=== PATIENT | female | born 1975 | race Caucasian/White ===

== ENCOUNTER 2017-08-23 11:08 | Emergency (ER) | payer OTHER ==
[2017-08-23 11:11] VITALS: BMI 22.4
[2017-08-23 11:17] VITALS: BP 122/69; PULSE 95; RESP 18; TEMP 98.1; O2SAT 100
--- NOTE | 2017-08-23 11:23 | ED PDOC ---
Arrival/HPI - General Chief Complaint: Rib Injury Time Seen by Provider: 08/23/17 11:10 Historian: Patient - History of Present Illness Narrative History of Present Illness (Text): 08/23/17 11:21 42yo female with no PMHx who present with right sided rib pain x 2weeks. Notes pain is with palpation, movement, deep inspiration. States she woke up with the pain. States she took Aleve yesterday with minimal relieve. Denies trauma, diaphoresis, SOB, dizziness, any other complaint. Past Medical History - Provider Review Nursing Documentation Reviewed: Yes - Infectious Disease Hx of Infectious Diseases: None - Tetanus Immunization Tetanus Immunization: Unknown - Pulmonary Hx Asthma: Yes - Psychiatric Hx Substance Use: No - Past Surgical History Past Surgical History: No Previous - Anesthesia Hx Anesthesia: No Hx Anesthesia Reactions: No Hx Malignant Hyperthermia: No Family/Social History - Physician Review Nursing Documentation Reviewed: Yes Family/Social History: Unknown Family HX Smoking Status: Current Some Days Smoker Hx Alcohol Use: Yes Frequency of alcohol use: Socially Hx Substance Use: No Hx Substance Use Treatment: No Allergies/Home Meds Allergies/Adverse Reactions: Allergies No Known Allergies Allergy (Verified 05/11/14 12:52) Review of Systems - Physician Review All systems were reviewed & negative as marked: Yes - Review of Systems Constitutional: Normal Eyes: Normal ENT: Normal Respiratory: Normal Cardiovascular: Normal Gastrointestinal: Normal Genitourinary Female: Normal Musculoskeletal: Arthralgias (Right ribs pain) Skin: Normal Neurological: Normal Endocrine: Normal Hemo/Lymphatic: Normal Psychiatric: Normal Physical Exam Vital Signs Reviewed: Yes Vital Signs Temp Pulse Resp BP Pulse Ox 08/23/17 11:16 98.1 F 95 H 18 122/69 100 Temperature: Afebrile Blood Pressure: Normal Pulse: Regular Respiratory Rate: Normal Appearance: Positive for: Well-Appearing, Non-Toxic, Comfortable Pain Distress: None Mental Status: Positive for: Alert and Oriented X 3 - Systems Exam Head: Present: Atraumatic, Normocephalic Pupils: Present: PERRL Extroacular Muscles: Present: EOMI Conjunctiva: Present: Normal Mouth: Present: Moist Mucous Membranes Neck: Present: Normal Range of Motion Respiratory/Chest: Present: Clear to Auscultation, Good Air Exchange, Tender to Palpation (right lateral ribs). No: Respiratory Distress, Accessory Muscle Use , Wheezes, Decreased Breath Sounds, Rales, Retracting, Rhonchi Cardiovascular: Present: Regular Rate and Rhythm, Normal S1, S2. No: Murmurs Abdomen: Present: Normal Bowel Sounds. No: Tenderness, Distention, Peritoneal Signs Back: Present: Normal Inspection Upper Extremity: Present: Normal Inspection. No: Cyanosis, Edema Lower Extremity: Present: Normal Inspection. No: Edema Neurological: Present: GCS=15, CN II-XII Intact, Speech Normal Skin: Present: Warm, Dry, Normal Color. No: Rashes Psychiatric: Present: Alert, Oriented x 3, Normal Insight, Normal Concentration Medical Decision Making ED Course and Treatment: 08/23/17 12:19 right rib/CXR - No fracture. No PTX. Negative xray Result was DW the pt. She will be DC home with Naprosyn rx. Referred to her PMD. TRT ED for any new or worsening symptoms 08/23/17 12:21 Review of pt's chart show that she was seen here few years ago for same rib pain and xray was also negative at that time. - RAD Interpretation Radiology Orders: 08/23/17 11:20 RIBS RIGHT & PA CHEST [RAD] Stat - Medication Orders Current Medication Orders: Discontinued Medications Ketorolac Tromethamine (Toradol) 60 mg IM STAT STA Stop: 08/23/17 11:21 Last Admin: 08/23/17 11:34 Dose: 60 mg MAR Pain Assessment Document 08/23/17 11:34 SE (Rec: 08/23/17 11:34 [id number]) Pain Reassessment Is this a pain reassessment? No Sleep Is patient sleeping during reassessment? No Presence of Pain Presence of Pain Yes Pain Scale Used Pain Scale Used Numeric Location Left, Right or Bilateral Right IM Administration Charges Document 08/23/17 11:34 SE (Rec: 08/23/17 11:34 [id number]) Injection Site MAR Injection Site Right Gluteus Gregorio Charges for Administration # of IM Administrations 1 Disposition/Present on Arrival - Present on Arrival Any Indicators Present on Arrival: No History of DVT/PE: No History of Uncontrolled Diabetes: No Urinary Catheter: No History of Decub. Ulcer: No History Surgical Site Infection Following: None - Disposition Have Diagnosis and Disposition been Completed?: Yes Diagnosis: Rib pain Disposition: HOME/ ROUTINE Disposition Time: 12:25 Patient Plan: Discharge Condition: STABLE Discharge Instructions (ExitCare): Chest Pain (ED) Additional Instructions: Follow up with your doctor Return to ED for any new symptoms Prescriptions: Naproxen [Naprosyn] 500 mg PO BID #20 tab Referrals: Geovanni Mohamud, [Primary Care Provider] - Follow up with primary [facility] [place] [Outside] - Follow up with primary Forms: [employer] ([place]alan)
--- NOTE | 2017-08-23 12:06 | RAD ---
PROCEDURE: Radiographs of the Chest and Right Ribs. HISTORY: rib pain COMPARISON: None available. TECHNIQUE: Frontal radiograph of the chest and multiple oblique radiographs of the right ribs were obtained. FINDINGS: RIGHT RIBS: No fracture or focal lesion visualized. LUNGS: Clear. PLEURA: No pneumothorax or pleural fluid. CARDIOVASCULAR: Normal sized heart. No pulmonary vascular congestion. OTHER FINDINGS: None. IMPRESSION: Unremarkable radiographs of the chest and right ribs. No right rib fracture.
== END 2017-08-23 12:33 | disposition home or self-care (01) ==
LOC: ED 11:08
DX: R07.9 Chest pain, unspecified (principal)
CPT/HCPCS: 71101; 96372; 99284; J1885